=== PATIENT | female | born 1965 | race Caucasian/White ===

== ENCOUNTER 2024-06-28 16:30 | Emergency (ER) | payer BC, SELFPAY ==
[2024-06-28] VITALS (8 sets, daily range): BP systolic 116–144; BP diastolic 71–82; BMI 13.6
[2024-06-28] MEDS: NSS 500 IV (17:04)
[2024-06-28] MEDS: TORADOL 15 MG IV ×2 (17:05→21:07)
[2024-06-28] MEDS: ZOFRAN 4 MG IV (17:07)
[2024-06-28 17:09] LABS: % Basophils 0.7 % (0-2); % Eosinophils 1.2 % (0-6); % Immature Granulocytes 0.3 % (0-0.5); % Lymphocytes 13.9 % (20.5-51.1); % Monocytes 6.7 % (1.7-9.3); % Neutrophils 77.2 % (42.2-75.2); Absolute Basophils 0.1 10^3/uL (0-0.2); Absolute Eosinophils 0.1 10^3/uL (0-0.7); Absolute Lymphocytes 1.3 10^3/uL (1.2-3.4); Absolute Monocytes 0.6 10^3/uL (0.1-0.6); Absolute Neutrophils 7.2 10^3/uL (1.4-6.5); Hematocrit 32.5 % (37.0-47.0); Hemoglobin 10.8 g/dL (12.0-16.0); Mean Corp Hgb Conc. 33.2 g/dL (33.0-37.0); Mean Corpuscular Hgb 30.7 pg (27.0-31.0); Mean Corpuscular Volume 92.3 fL (81.0-99.0); Mean Platelet Volume 9.5 fL (7.4-10.4); Nucleated Red Blood Cells % 0 %; Platelet Count 258 10^3/uL (130-400); Red Blood Cell Count 3.52 10^6/uL (4.20-5.40); Red Cell Dist. Width 13.3 % (11.5-14.5); White Blood Cell Count 9.3 10^3/uL (4.8-10.8)
--- NOTE | 2024-06-28 17:11 | ED.GENMED ---
History of Present Illness
General
Chief Complaint: Flank Pain
Source: patient
Exam Limitations: none
Time Seen by Provider: 06/28/24 16:42
Nursing documentation reviewed up to this point in time: agreed with
History of Present Illness
History of Present Illness:
58-year-old female past medical history of kidney stones and depression presenting to the emergency department today with concerns of left flank pain over the past 3 hours. Associated nausea no vomiting. Feels very similar to previous kidney
stones. Denies any significant change in bowel or bladder function. No chest pain or shortness of breath.
Past History
Past History
ED Past Medical History: Other (Kidney stones, migraines)
Social History
Tobacco: Non-smoker
Alcohol: None
Family History
Family History: Negative Diabetes, Hypertension or CAD
Review of Systems
Review of Systems
Allergies reviewed?: Yes
All Other Systems: ROS reviewed and negative except as documented in HPI and ROS
Phy Exam
Physical Exam
Physical Exam:
GENERAL: Alert , in no apparent distress
EYE: pupils equal and reactive
NECK: Supple, no significant adenopathy.
ENT: o/p clr, mmm.
CARDIAC: Regular rate and rhythm .
LUNGS: Clear breath sounds bilaterally, no acute respiratory distress, no wheezes/rales/rhonchi
ABDOMEN: Soft, without focal tenderness, no r/g, no cvat
NEUROLOGICAL: Alert and oriented, no focal neuro deficits
SKIN: Warm and dry, skin intact.
MUSCULOSKELETAL: No edema, well perfused.
PSYCH: Normal and appropriate interaction.
Course
Orders/Labs/Results
Orders:
Orders
06/28/24 16:58
CMP [Comprehensive Metabolic Panel] Urgent
Complete Blood Count/With Diff Urgent
06/28/24 16:59
CT Abd/pel Without Iv Or Oral Urgent
Comment:
Reason For Exam: left flank pain
0.9% Sodium Chloride 1000 ml [Nss] 1,000 ml IV BOLUS
Ketorolac [Toradol] 15 mg IV NOW STA
Ondansetron Injectable [Zofran] 4 mg IV NOW STA
06/28/24 17:03
0.9% Sodium Chloride 500 ml [Nss] 500 ml IV BOLUS
06/28/24 18:25
HYDROmorphone [Dilaudid] 0.5 mg IV NOW STA
06/28/24 18:26
HYDROmorphone [Dilaudid] 0.5 mg .ROUTE .STK-MED ONE
06/28/24 19:48
HYDROmorphone [Dilaudid] 0.5 mg IV NOW STA
06/28/24 20:43
HYDROmorphone [Dilaudid] 0.5 mg IV NOW STA
Ketorolac [Toradol] 15 mg IV NOW STA
Tamsulosin [Flomax] 0.4 mg PO NOW STA
06/28/24 21:10
Urinalysis Reflex To Culture Urgent
Date Specimen was Collected: 06/28/24
Time Specimen was Collected: 21:06
Urine Microscopic Reflex Cult Urgent
Abnormal Lab Results
06/28/24 06/28/24
16:58 21:10
RBC 3.52 L 10^6/uL
(4.20-5.40)
Hgb 10.8 L g/dL
(12.0-16.0)
Hct 32.5 L %
(37.0-47.0)
Absolute Neuts (auto) 7.2 H 10^3/uL
(1.4-6.5)
Neutrophils % 77.2 H %
(42.2-75.2)
Lymphocytes % 13.9 L %
(20.5-51.1)
Sodium 134 L mmol/L
(135-145)
Potassium 3.3 L mmol/L
(3.5-5.1)
Chloride 108 H mmol/L
(98-107)
Carbon Dioxide 21 L mmol/L
(22-30)
Creatinine 1.1 H mg/dL
(0.6-1.0)
Glucose 172 H mg/dl
(70-99)
Total Protein 5.0 L g/dl
(6.3-8.2)
Albumin 3.3 L g/dl
(3.5-5.0)
Ur Occult Blood Reflex 3+ A
(Negative)
Urine RBC 30-40 A /HPF
(0-2)
Urine Bacteria (Reflex) Few A
(Negative)
06/28/24 16:58
06/28/24 16:58
Vital Signs
Initial and Last Documented VS:
Initial Vital Signs
Pulse Resp BP Pulse Ox
62 20 127/75 100
06/28/24 16:32 06/28/24 16:32 06/28/24 16:32 06/28/24 16:32
Last Documented Vital Signs
Temp Pulse Resp BP Pulse Ox
97.4 F 98 16 116/79 96
06/28/24 17:11 06/28/24 21:00 06/28/24 21:00 06/28/24 21:00 06/28/24 21:00
MDM/Problems Addressed
MDM/Problems Addressed:
58-year-old female presenting to the emergency department today with concerns of left-sided flank pain over the past 3 hours associated nausea. Feels very similar to previous kidney stones. The patient was found to have a 7 mm stone to the left
mid ureter with moderate hydro-. Otherwise her labs without emergent findings creat of 1.1 which patient has had in the past otherwise some slightly low potassium and sodium levels. No signs of infection. Symptoms were significantly improved
after receiving nausea medication and pain medication. Patient elected to trial outpatient treatment. This was discussed with urology who is in agreement. She was given return precautions.
*Critical Care Note
Total Time (30-74mins, 75-104mins- exclusive of procedures): Not Applicable
ED Attending Note
-
Portions of this chart may have been created with voice recognition software.� Occasional wrong word or��sound alike� substitutions may have occurred due to the inherent limitations of voice recognition software.
Discharge Plan
Departure
Patient Disposition: Home (Routine Discharge)
Date of Disposition: 06/28/24
Time of Disposition: 21:32
Patient with high blood pressure during this ER visit?: No
Condition: Good
Covid-19: Not Applicable
Discharge Problem:
Kidney stone
Instructions: Kidney Stones (DC), How to Strain Your Urine
Prescriptions:
New
tamsulosin [Flomax] 0.4 mg capsule
0.4 mg PO HS Qty: 14 0RF
oxycodone-acetaminophen [Percocet] 5-325 mg tablet
1 tab PO Q8H PRN (Reason: Pain) Qty: 7 0RF
ketorolac 10 mg tablet
10 mg PO Q8H PRN (Reason: Pain) 3 Days Qty: 10 0RF
ondansetron 4 mg tablet,disintegrating
4 mg PO Q8H PRN (Reason: nausea and vomiting) Qty: 7 0RF
No Action
oxycodone-acetaminophen 5 MG/325 MG tablet
1 tab PO Q4HPRN PRN (Reason: pain) Qty: 20 0RF
tamsulosin 0.4 MG capsule
0.4 mg PO DAILY Qty: 7 0RF
Referrals:
Pattie Kincaid MD [Family Provider] -
Tereso Douglass MD [Active] - Follow up in 5-7 days
Activity Restrictions/Additional Instructions:
You came to the emergency department today with concerns of flank discomfort. You are found to have a stone in your ureter. Please follow-up closely with urology and take the medications as prescribed. Return to the emergency department for any
worsening, new or concerning symptoms.
Interventions
Interventions:
*Risk Screen - Suicide Last Done: 06/28/24 17:08
*General Assessment Last Done: 06/28/24 17:08
*Neglect/Abuse Screening Last Done: 06/28/24 17:08
ED- Fall Risk Assessment Last Done: 06/28/24 21:38
*ED COVID-19 Vaccine History Last Done: 06/28/24 17:08
*Nursing Disposition Last Done: 06/28/24 21:38
KV-Jauygs-Cipgcbsfgp Assessment Last Done: 06/28/24 17:09
ED-Female Genitourinary Assessment Last Done: 06/28/24 17:09
Discharge Date and Time
Discharge Date/Time: 06/28/24 21:38
Print Language: TRISTANIAN
[2024-06-28 17:24] LABS: ALT (SGPT) < 10 U/L (0-35); AST (SGOT) 20 U/L (14-36); Albumin 3.3 g/dl (3.5-5.0); Alkaline Phosphatase 69 U/L (38-126); Blood Urea Nitrogen 13 mg/dl (7-17); Calcium 9.5 mg/dl (8.4-10.2); Carbon Dioxide 21 mmol/L (22-30); Chloride 108 mmol/L (98-107); Estimated Creatinine Clearance 30 ml/min; Glucose 172 mg/dl (70-99); Potassium 3.3 mmol/L (3.5-5.1); Sodium 134 mmol/L (135-145); Total Bilirubin 0.3 mg/dl (0.2-1.3); eGFR 57.52
[2024-06-28] MEDS: DILAUDID 0.5 MG IV ×3 (18:28→21:07)
[2024-06-28] MEDS: FLOMAX 0.4 MG PO (21:07)
[2024-06-28 21:17] LABS: Urine Albumin Negative (Neg - Trace); Urine Bilirubin Negative (Negative); Urine Character Clear (Clear); Urine Color Yellow; Urine Glucose Negative (Negative); Urine Ketone Negative (Negative); Urine Leukocyte Negative (Negative); Urine Nitrite Negative (Negative); Urine Occult Blood 3+ (Negative); Urine Urobilinogen Negative (Neg - 1+)
[2024-06-28 21:28] LABS: Urine Bacteria Few (Negative); Urine Red Blood Cell 30-40 /HPF (0-2); Urine White Cell 0-2 /HPF (0-5)
== END 2024-06-28 21:38 | disposition home or self-care (01) ==
LOC: EMR 16:30
PROVIDERS: Physician Assistant; EMERGENCY PHYSICIAN Emergency Medicine; FAMILY PHYSICIAN Internal Medicine
DX: N13.2 Hydronephrosis with renal and ureteral calculous obstruction (principal); R11.0 Nausea; G43.909 Migraine, unspecified, not intractable, without status migrainosus; F32.A Depression, unspecified; Z87.442 Personal history of urinary calculi
CPT/HCPCS: 99284; 96374; 96375 ×2; 96361; 96376 ×3; 74176; 80053; 81003; 81015; 85025

== ENCOUNTER 2024-07-04 16:52 | Observation (INO) | payer BC, SELFPAY ==
[2024-07-04] VITALS (7 sets, daily range): BP systolic 121–151; BP diastolic 73–94; BMI 14.5; BMI 13.7
[2024-07-04 05:59] LABS: % Basophils 0.8 % (0-2); % Eosinophils 3.8 % (0-6); % Immature Granulocytes 0.5 % (0-0.5); % Lymphocytes 16.4 % (20.5-51.1); % Monocytes 9.7 % (1.7-9.3); % Neutrophils 68.8 % (42.2-75.2); Absolute Basophils 0.1 10^3/uL (0-0.2); Absolute Eosinophils 0.2 10^3/uL (0-0.7); Absolute Monocytes 0.6 10^3/uL (0.1-0.6); Absolute Neutrophils 4.2 10^3/uL (1.4-6.5); Hematocrit 32.1 % (37.0-47.0); Hemoglobin 10.7 g/dL (12.0-16.0); Mean Corp Hgb Conc. 33.3 g/dL (33.0-37.0); Mean Corpuscular Hgb 30.7 pg (27.0-31.0); Mean Platelet Volume 9.5 fL (7.4-10.4); Nucleated Red Blood Cells % 0 %; Platelet Count 246 10^3/uL (130-400); Red Blood Cell Count 3.49 10^6/uL (4.20-5.40); Red Cell Dist. Width 13.2 % (11.5-14.5); White Blood Cell Count 6.1 10^3/uL (4.8-10.8)
[2024-07-04] MEDS: DILAUDID 1 MG IV (06:03)
[2024-07-04 06:15] LABS: ALT (SGPT) < 10 U/L (0-35); AST (SGOT) 17 U/L (14-36); Albumin 3.2 g/dl (3.5-5.0); Alkaline Phosphatase 79 U/L (38-126); Blood Urea Nitrogen 30 mg/dl (7-17); Carbon Dioxide 20 mmol/L (22-30); Chloride 107 mmol/L (98-107); Estimated Creatinine Clearance 22 ml/min; Glucose 95 mg/dl (70-99); Potassium 3.9 mmol/L (3.5-5.1); Sodium 133 mmol/L (135-145); Total Bilirubin 0.3 mg/dl (0.2-1.3); eGFR 36.69
--- NOTE | 2024-07-04 06:22 | ED.GENMED ---
History of Present Illness
General
Chief Complaint: Flank Pain
Source: patient
Exam Limitations: none
Time Seen by Provider: 07/04/24 06:14
History of Present Illness
History of Present Illness:
See MDM
Past History
Past History
ED Past Medical History: Other (Kidney stones, migraines)
Social History
Tobacco: Non-smoker
Alcohol: None
Family History
Family History: Negative Diabetes, Hypertension or CAD
Phy Exam
Physical Exam
Physical Exam:
See MDM
Course
Orders/Labs/Results
Orders:
Orders
07/04/24 05:51
Comprehensive Metabolic Panel Urgent
07/04/24 05:52
Complete Blood Count/With Diff Urgent
07/04/24 06:01
HYDROmorphone [Dilaudid] 1 mg .ROUTE .STK-MED ONE
07/04/24 06:02
HYDROmorphone [Dilaudid] 1 mg IV NOW STA
07/04/24 06:22
0.9% Sodium Chloride 1000 ml [Nss] 1,000 ml IV BOLUS
07/04/24 06:30
Consult Urology [UROLOGY CONSULT] Urgent
Consulting Provider: Efrem Dominguez
Was physician already notified: Yes
Abnormal Lab Results
07/04/24 07/04/24
05:51 05:52
RBC 3.49 L 10^6/uL
(4.20-5.40)
Hgb 10.7 L g/dL
(12.0-16.0)
Hct 32.1 L %
(37.0-47.0)
Absolute Lymphs (auto) 1.0 L 10^3/uL
(1.2-3.4)
Lymphocytes % 16.4 L %
(20.5-51.1)
Monocytes % 9.7 H %
(1.7-9.3)
Sodium 133 L mmol/L
(135-145)
Carbon Dioxide 20 L mmol/L
(22-30)
BUN 30 H mg/dl
(7-17)
Creatinine 1.6 H mg/dL
(0.6-1.0)
Total Protein 5.0 L g/dl
(6.3-8.2)
Albumin 3.2 L g/dl
(3.5-5.0)
07/04/24 05:52
07/04/24 05:51
Vital Signs
Initial and Last Documented VS:
Initial Vital Signs
Temp Pulse Resp BP Pulse Ox
98.7 F 106 16 133/76 100
07/04/24 05:05 07/04/24 05:05 07/04/24 05:05 07/04/24 05:05 07/04/24 05:05
Last Documented Vital Signs
Temp Pulse Resp BP Pulse Ox
98.7 F 106 16 133/76 100
07/04/24 05:05 07/04/24 05:05 07/04/24 05:05 07/04/24 05:05 07/04/24 05:32
MDM/Problems Addressed
Differential Diagnosis Includes:
HPI and MDM Narrative:
58-year-old female presenting for persistent left flank pain. Patient was here a week ago and found to have a 7 mm left mid ureteral stone. Because she wanted to give outpatient trial, she was placed on Flomax, NSAIDs and narcotics. Due to the
ongoing symptoms, she has returned.
Patient was uncomfortable on exam. She was given a dose of Dilaudid which have significantly improved symptoms.
Given her ongoing symptoms, will discuss case with urology. Blood work was obtained prior to my evaluation and she does have a mild bump in creatinine. Will give IV fluids. Patient is afebrile
Physical exam
General: Uncomfortable
HEENT: protecting airway. Mildly dry mucous membranes
Neck: appears supple
CV: No evidence of cyanosis
Resp: No accessory muscle use
Abd: Non-distended. Left flank pain without rebound
Extremities: No deformities
Neuro: alert
Psych: Normal affect
Skin: Intact
Problems Addressed including Acute and Chronic Conditions affecting care:
1. Left ureteral stone
Acuity: subacute
Prognosis: stable
Details: CT 1 week ago confirms mid ureteral stone. Will discuss case with urology. Patient Dilaudid
2. Acute kidney injury
Acuity: acute
Prognosis: stable
Details: Likely in the setting of decreased p.o. intake. Will give IV fluids
Updates
6:30 AM Case discussed with urology who will evaluate at bedside for stent placement
Differential Diagnosis (but not limited to): Kidney stone, dehydration
Testing considered: Urinalysis
Drug therapy (if applicable): OTC meds, please see d/c instruction regarding Rx drugs
Amount and/or Complexity of Data Reviewed
Clinical info obtained from: Patient
External data reviewed: CT 1 week ago confirms left ureteral stone
Labs I independently reviewed (but not limited to): White blood cell count normal
Radiology: N/A
Pulse Ox: not hypoxic
EKG independently reviewed: N/A
Solar Panel Technician: N/A
Critical Care: N/A
Risk of Complication:
Social Determinants of health: Good social support
Discussed with other providers: Urology
Escalation of Care includes Admit/Obs: Given persistent symptoms with known stone, urology will bring to the OR for stent placement
Occasional wrong word or 'sound a like' substitutions may have occurred due to the inherent limitations of voice recognition software. Read the chart carefully and recognize, using context, where substitutions have occurred.
*Critical Care Note
Total Time (30-74mins, 75-104mins- exclusive of procedures): Not Applicable
ED Attending Note
-
Portions of this chart may have been created with voice recognition software.� Occasional wrong word or��sound alike� substitutions may have occurred due to the inherent limitations of voice recognition software.
Discharge Plan
Departure
Patient Disposition: OR
Date of Disposition: 07/04/24
Time of Disposition: 06:53
Admit to: OR
Presentation/result/management discussed w/ accepting MD/DO: Urology
Discharge Problem:
Calculus of left ureter
Prescriptions:
No Action
oxycodone-acetaminophen 5 MG/325 MG tablet
1 tab PO Q4HPRN PRN (Reason: pain) Qty: 20 0RF
tamsulosin 0.4 MG capsule
0.4 mg PO DAILY Qty: 7 0RF
tamsulosin [Flomax] 0.4 mg capsule
0.4 mg PO HS Qty: 14 0RF
oxycodone-acetaminophen [Percocet] 5-325 mg tablet
1 tab PO Q8H PRN (Reason: Pain) Qty: 7 0RF
ketorolac 10 mg tablet
10 mg PO Q8H PRN (Reason: Pain) 3 Days Qty: 10 0RF
ondansetron 4 mg tablet,disintegrating
4 mg PO Q8H PRN (Reason: nausea and vomiting) Qty: 7 0RF
oxycodone-acetaminophen [Percocet] 5-325 mg tablet
1 tab PO Q8H PRN (Reason: Pain) Qty: 7 0RF
Interventions
Interventions:
*Risk Screen - Suicide Last Done: 07/04/24 05:05
*General Assessment Last Done: 07/04/24 05:05
*Neglect/Abuse Screening Last Done: 07/04/24 05:05
ED- Fall Risk Assessment Last Done: 07/04/24 05:05
*ED COVID-19 Vaccine History Last Done: 07/04/24 05:05
EF-Vdmvip-Dmsvpxoohi Assessment Last Done: 07/04/24 05:31
ED-Female Genitourinary Assessment Last Done: 07/04/24 05:31
Discharge Date and Time
Print Language: KISWAHILI
[2024-07-04] MEDS: NSS 1000 IV (06:31)
--- NOTE | 2024-07-04 08:15 | PHANOTE ---
med rec kee(07/04/24)-patient was unable to give accurate medication list at time of interview. Home med list compiled through [facility] records from 04/04/24 and pharmacy records.
--- NOTE | 2024-07-04 09:36 | CONS.URO ---
Consultation
-
Date/Time Consultation Requested: 07/04/24
Date/Time Consultation Performed: 07/04/24
Requesting Provider: Aleksander
Performing Provider: Alberto
Reason for Consultation: TERRIE, obstructing left ureteral stone
Medical History
History of Present Illness
58F presents to ED for 2nd visit for known obstructing left ureteral stone.
06/28/24: ED visit => acute onset of left flank pain.
CTAP w/o IV contrast => 7 mm calculus in the mid left ureter with moderate proximal hydroureteronephrosis.
Discharged home on tamsulosin + analgesics w/ outpatient Urology F/U.
Had not yet scheduled appointment w/ Urology.
Prior h/o kidney stone passage - has not seen a urologist or required surgical intervention.
07/04/24: ED visit => recurrent severe left renal colic.
WBC WNL.
Cr 1.6 (from 1.1).
UA +RBCs.
Due to recurrent left renal colic and TERRIE noted on updated labs, plan for non-emergent surgical intervention.
Detailed discussion including SDM had w/ patient regarding risks, benefits, alternatives, and potential complications of URS/LL/stone extraction/stent placement.
Risks and potential complications include but not limited to urosepsis, bleeding, ureteral/bladder injury, risk of ureteral stricture formation, need for additional procedures.
A/P:
TERRIE
Recurrent and severe left renal colic
Obstructing mid left ureteral stone w/ hydroureteronephrosis
- Maintain NPO
- To OR for LEFT URS/LL/stone extraction/stent placement vs. stent placement only - as this is non-emergent, patient aware that OR intervention may be late in day vs. tomorrow pending OR availability
- Surgical consent on chart
- IV Ancef 2g stationary engineer apprentice to OR (ordered)
D/w patient and spouse.
D/w Dr. Armijo (ED).
Social History
Tobacco: Non-smoker
Alcohol: None
Personal:
Living: With Family
Family History
Family History: Reviewed & Not Pertinent
Allergies/Home Medications
Allergies
Allergy/AdvReac Type Severity Reaction Status Date / Time
No Known Allergies Allergy Verified 07/04/24 05:04
Home Medications
�Medication �Instructions �Recorded �Confirmed �Type
tamsulosin 0.4 mg capsule (Flomax) 0.4 mg PO HS #14 caps 06/28/24 07/04/24 Rx
bupropion HCl 300 mg 24 hr tablet, 300 mg PO DAILY 07/04/24 07/04/24 History
extended release
mobwafjffm-nzxihxzfmhgep-kdughgar 1 tab PO Q4HPRN PRN headache 07/04/24 07/04/24 History
50 mg-325 mg-40 mg tablet
doxycycline hyclate 50 mg capsule 50 mg PO BID 07/04/24 History
duloxetine 60 mg capsule,delayed 60 mg PO DAILY 07/04/24 07/04/24 History
release
ketorolac 10 mg tablet 10 mg PO Q8HPRN PRN moderate pain 07/04/24 07/04/24 History
ondansetron 4 mg disintegrating 4 mg PO Q8HPRN PRN nausea and 07/04/24 07/04/24 History
tablet vomiting
oxycodone-acetaminophen 5 mg-325 1 tab PO Q8HPRN PRN moderate pain 07/04/24 07/04/24 History
mg tablet (Percocet)
sennosides 8.6 mg tablet (senna) 30 mg PO DAILY 07/04/24 07/04/24 History
sennosides 8.6 mg-docusate sodium 1 tab-cap PO BIDPRN PRN 07/04/24 07/04/24 History
50 mg tablet (Senna with Docusate constipation
Sodium)
spironolactone 100 mg tablet 100 mg PO BID 07/04/24 07/04/24 History
sumatriptan 20 mg/actuation nasal 20 mg intranasal DAILYPRN PRN 07/04/24 07/04/24 History
spray headache
tacrolimus 0.1 % topical ointment 1 applic topical BIDPRN PRN skin 07/04/24 07/04/24 History
issue
topiramate 200 mg tablet 400 mg PO BID 07/04/24 07/04/24 History
trazodone 100 mg tablet 250 mg PO HS 07/04/24 07/04/24 History
Review of Systems
-
History Source: Patient
A 12 point Review of Systems was completed except as noted: Yes
Physical Exam
Vital Signs
Vital Signs
Temp Pulse Resp BP Pulse Ox
98.7 F 106 16 133/84 100
07/04/24 05:05 07/04/24 05:05 07/04/24 05:05 07/04/24 06:00 07/04/24 06:00
Lab / Testing Results
Laboratory Results
07/04/24 05:52
07/04/24 05:51
Physical Exam
General: Well Developed, Well Nourished and No Apparent Distress
HEENT: Normocephalic and Anicteric
Respiratory: Non Labored Respirations
Cardiac: S1/S2
Breast: Deferred by me
GI: Soft, Non Tender and Non Distended
Rectal: Deferred by Provider
Genito-urinary: No Costovertebral Tend
Musculoskeletal: No Clubbing
Skin: Warm and Dry
Neuro: AO x 3, No Motor Deficits, Sedated and Nonfocal/Grossly Intact
Hematologic/Lymphatic: No Lymphadenopathy
Psych: Calm and Intact Judgement
Data Reviewed
-
Total Time Spent with Patient (in minutes): [address] Scan: Image personally visualized and interpreted, Report Reviewed by Me, Discussed with Physician, Discussed with Patient and Discussed with Family
Lab Data: Labs Reviewed, Discussed with Physician, Discussed with Patient and Discussed with Family
Old Records: Reviewed
[2024-07-04] MEDS: DILAUDID 0.5 MG IV ×4 (10:07→20:46)
--- NOTE | 2024-07-04 16:09 | W.SUR.PREOP ---
Pre-Operative Surgical Note
-
I have examined this patient prior to the performance of the scheduled procedure.
The patient's condition is unchanged from the time of the current History and
Physical and the patient is able to undergo the scheduled procedure.
Detailed discussion including SDM had w/ patient regarding risks, benefits, alternatives, and potential complications of URS/LL/stone extraction/stent placement.
Risks and potential complications include but not limited to urosepsis, bleeding, ureteral/bladder injury, risk of ureteral stricture formation, need for additional procedures.
TERRIE
Recurrent and severe left renal colic
Obstructing mid left ureteral stone w/ hydroureteronephrosis
- NPO
- To OR for LEFT URS/LL/stone extraction/stent placement vs. stent placement ONLY - as this is non-emergent, patient aware that OR intervention may be late in day vs. tomorrow pending OR availability
- Surgical consent on chart
- IV Ancef 2g vp production to OR (ordered)
D/w patient and spouse.
[2024-07-04] MEDS: ROXICODONE 5 MG PO (19:11)
[2024-07-04] MEDS: TOPAMAX 400 MG PO (19:11)
[2024-07-04] MEDS: FLUSH (NSS) 2 FLUSH IV (20:46)
[2024-07-04] MEDS: ALDACTONE 100 MG PO (21:01)
[2024-07-04] MEDS: DESYREL 250 MG PO (23:21)
[2024-07-04] MEDS: TYLENOL 650 MG PO (23:21)
[2024-07-04] MEDS: DILAUDID 0.25 MG IV (23:28)
[2024-07-04] MEDS: FLOMAX 0.4 MG PO (23:33)
[2024-07-05] VITALS (11 sets, daily range): BP systolic 80–161; BP diastolic 61–98
--- NOTE | 2024-07-05 01:40 | PTCARENOTE ---
Admission from ER around 1999, c/o 10/10 L flank pain s/p voiding. Several small fragments strained from urine. Pain medication given immediately upon assessment. Pt. A&Ox2, disoriented to time stating her head felt 'fuzzy' after she received pain
medication in ER, in position crying with abdominal guarding, BP and HR elevated, orders for tele received as pt's HR was 170s upon arrival. Admission assessment completed and pain subsided shortly s/p PRN dilaudid. Around 2144 pt. found
wandering the halls, confused to place and time, redirected to room and bed alarm placed. Pt. assisted to bathroom at 2229 and had scant spotting of blood on tissue paper. Asked to evaluate pt's karen area as previous voids were clear yellow, pt.
very hesitant but agreed. Pt. found to have a large rectal prolapse with scant bleeding upon wiping, unwilling to provide further information at that time stating she didn't know she had it. ER nurse note from [id number] stated she mentioned a protrusion
to karen area but didn't specify where and did not allow provider to assess. House GOLF CLUB REPAIRER at bedside to evaluate pt. at which point she stated she never told anyone because it was 'embarrassing' and that she had been dealing with it 'for a while' and has
chronic constipation. bi data architect urologist contacted but stated colorectal did not need to get involved at this point because the prolapse would not interfere with the surgery and pt. can follow up outpatient. Will monitor for further bleeding or
discomfort.
--- NOTE | 2024-07-05 05:13 | W.PN.UPDATE ---
Addendum entered and electronically signed by GUILLERMO Mckeon 07/05/24 07:02:
RN notified PHOTO CARTOGRAPHER, HR staying in 160's, EKG sinus tachycardia, BP 160's/98, afebrile. Will give Metoprolol 2.5 IV x1 now.
Original Note:
Update Note
Progress Note Update
RN notified PHOTO CARTOGRAPHER, she noted few spots of blood on tissue after the usage of toilet. Upon Shelby assessment, RN noted rectum prolapsed. PHOTO CARTOGRAPHER seen and evaluated the patient, Rectal prolapsed noted, with no active bleeding at present. Patient reported, she
has chronic constipation, and her rectal prolapsed a while ago and was embarrassed to tell anyone. Advised patient it needs to be taken care of as outpatient, encouraged high fiber foods and the use of laxatives. Advised RN to make Urology aware.
[2024-07-05] MEDS: TYLENOL 650 MG PO ×2 (05:23→12:21)
[2024-07-05] MEDS: DILAUDID 0.25 MG IV (05:37)
[2024-07-05 06:01] LABS: % Basophils 0.8 % (0-2); % Eosinophils 2.6 % (0-6); % Immature Granulocytes 0.4 % (0-0.5); % Lymphocytes 16.4 % (20.5-51.1); % Monocytes 10.5 % (1.7-9.3); % Neutrophils 69.3 % (42.2-75.2); Absolute Eosinophils 0.1 10^3/uL (0-0.7); Absolute Lymphocytes 0.9 10^3/uL (1.2-3.4); Absolute Monocytes 0.6 10^3/uL (0.1-0.6); Absolute Neutrophils 3.7 10^3/uL (1.4-6.5); Hemoglobin 10.5 g/dL (12.0-16.0); Mean Corp Hgb Conc. 33.9 g/dL (33.0-37.0); Mean Corpuscular Hgb 30.9 pg (27.0-31.0); Mean Corpuscular Volume 91.2 fL (81.0-99.0); Mean Platelet Volume 9.7 fL (7.4-10.4); Nucleated Red Blood Cells % 0 %; Platelet Count 250 10^3/uL (130-400); Red Cell Dist. Width 13.2 % (11.5-14.5); White Blood Cell Count 5.3 10^3/uL (4.8-10.8)
[2024-07-05] MEDS: LOPRESSOR 2.5 MG IV (06:07)
[2024-07-05 06:22] LABS: Blood Urea Nitrogen 23 mg/dl (7-17); Calcium 9.3 mg/dl (8.4-10.2); Carbon Dioxide 17 mmol/L (22-30); Chloride 108 mmol/L (98-107); Estimated Creatinine Clearance 24 ml/min; Glucose 87 mg/dl (70-99); Magnesium 1.8 mg/dl (1.6-2.3); Potassium 3.9 mmol/L (3.5-5.1); Sodium 134 mmol/L (135-145); eGFR 43.07
--- NOTE | 2024-07-05 06:30 | PTCARENOTE ---
Pt. calling for pain medication around 0515 stating 10/10 pain. House HARNESS REPAIRER contacted for reduced dose of dilaudid as pt. was getting confused with 0.5mg IV doses of dilaudid. Pt's HR suddenly spiked to ~170s around 0525, denies chest pain, states left
lower flank pain where ureteral stone has been identified. HARNESS REPAIRER alerted and pain medication given @0537. EKG obtained at 0529 showing sinus tach, HR 172, BP 161/98, temp 98.8, o2 100% on RA. HR still sustaining in 160s several minutes after pt.
reports pain was starting to subside. Requested dose of Lopressor from HARNESS REPAIRER for rate control. Pt. given 2.5mg IV Lopressor at 0607 with immediate results, HR falling back down to 100s-110s within the next 5 minutes.
--- NOTE | 2024-07-05 07:12 | W.PN.UPDATE ---
Update Note
Progress Note Update
pt stable overnight- although rectal prolapse noted- chronic
pt has received pain meds and is having a hard time explaning current sx's
plan to proceed to OR today for ureteroscopy
[2024-07-05] MEDS: CYMBALTA DELAYED RELEASE 60 MG PO (07:47)
[2024-07-05] MEDS: ALDACTONE 100 MG PO ×2 (07:47→16:22)
[2024-07-05] MEDS: TOPAMAX 400 MG PO (07:48)
[2024-07-05] MEDS: WELLBUTRIN XL (24 hour extended release) 150 MG PO (07:48)
[2024-07-05] MEDS: SENOKOT 8.6 MG PO (07:48)
--- NOTE | 2024-07-05 09:09 | W.IMMPOSTOP ---
Surgical Immed Post Op Note
-
Primary Surgeon:
efrain
Assisting Surgeon:
Pre-op Diagnosis:
left ureteral stone
Post-op Diagnosis:
same
Procedure Performed:
cysto, left ureteroscopy, laser litho and stent
Anesthesia Type:
gen
Specimen / Cultures:
none
Estimated Blood Loss:
1cc
Complications:
none
Operative Findings:
left stone fragmented,stent placed
dr vargas evaluated rectum- not obstructed- large rhoids- can f/u as outpt
plan for discharge later today if stable
[2024-07-05] MEDS: TORADOL 15 MG IV (09:46)
[2024-07-05] MEDS: DETROL LA 4 MG PO (09:51)
[2024-07-05] MEDS: Pyridium 200 MG PO (09:51)
[2024-07-05] MEDS: ULTRAM 50 MG PO (13:35)
[2024-07-05 13:55] LABS: Hematocrit 28.3 % (37.0-47.0); Hemoglobin 9.9 g/dL (12.0-16.0); Mean Corpuscular Hgb 31.1 pg (27.0-31.0); Mean Platelet Volume 9.7 fL (7.4-10.4); Platelet Count 246 10^3/uL (130-400); Red Blood Cell Count 3.18 10^6/uL (4.20-5.40); Red Cell Dist. Width 13.2 % (11.5-14.5); White Blood Cell Count 5.3 10^3/uL (4.8-10.8)
[2024-07-05 14:08] LABS: Blood Urea Nitrogen 20 mg/dl (7-17); Calcium 8.8 mg/dl (8.4-10.2); Carbon Dioxide 19 mmol/L (22-30); Chloride 106 mmol/L (98-107); Estimated Creatinine Clearance 30 ml/min; Glucose 145 mg/dl (70-99); Potassium 3.8 mmol/L (3.5-5.1); Sodium 133 mmol/L (135-145); eGFR 57.52
--- NOTE | 2024-07-05 14:15 | CON.CAR ---
Consultation
Consultation Request
Date/Time Consultation Requested: Jul 05 2024 1 PM
Date/Time Consultation Performed: July 05, 2024 2 PM
Requesting Provider: Urology
Performing Provider: Omi Simpson
Reason for Consultation: Tachycardia
Medical History
-
Chief Complaint: flank pain
History of Present Illness:
58-year-old female with history of hyperlipidemia, migraines, and kidney stones who initially presented for flank pain and found to have obstructing kidney stone. She is status post OR for urologic procedure. Overnight, she was in pain and
developed tachycardia. Upon review of the monitor it appears that this was SVT. It did not last too long and she was asymptomatic during this time. This occurred again this afternoon and again was asymptomatic and did not last very long.
Overall, she is not very active but denies any significant cardiovascular symptoms with activity. She denies any significant palpitations. I discussed with her that this is likely provoked from her pain and procedure. Initial labs showed a
negative troponin. I discussed starting a low-dose metoprolol which she is agreeable with.
Past Medical History
Past Medical History: Other (Migraine and kidney stones)
Past Surgical History: Other (Lithotripsy ureteral stent placement)
Social History
Tobacco: Non-Smoker
Alcohol: None
Drug: None
Personal:
Living: With Family
Family History
Family History: Reviewed & Not Pertinent
Allergies / Home Medications
Allergy/AdvReac Type Severity Reaction Status Date / Time
No Known Allergies Allergy Verified 07/04/24 05:04
�Medication �Instructions �Recorded �Confirmed �Type
bupropion HCl 300 mg 24 hr tablet, 300 mg PO DAILY Depression 07/04/24 07/04/24 History
extended release
ocfhsyaqqj-qbnjxdhvympjj-pyecfmhb 1 tab PO Q4HPRN PRN headache 07/04/24 07/04/24 History
50 mg-325 mg-40 mg tablet
duloxetine 60 mg capsule,delayed 60 mg PO DAILY Depression 07/04/24 07/04/24 History
release
sennosides 8.6 mg tablet (senna) 30 mg PO DAILY Constipation 07/04/24 07/04/24 History
sennosides 8.6 mg-docusate sodium 1 tab-cap PO BIDPRN PRN 07/04/24 07/04/24 History
50 mg tablet (Senna with Docusate constipation
Sodium)
spironolactone 100 mg tablet 100 mg PO BID Fluid 07/04/24 07/04/24 History
Retention/Swelling
sumatriptan 20 mg/actuation nasal 20 mg intranasal DAILYPRN PRN 07/04/24 07/04/24 History
spray headache
tacrolimus 0.1 % topical ointment 1 applic topical BIDPRN PRN skin 07/04/24 07/04/24 History
issue
topiramate 200 mg tablet 400 mg PO BID Seizures 07/04/24 07/04/24 History
trazodone 100 mg tablet 250 mg PO HS Sleep 07/04/24 07/04/24 History
nitrofurantoin 100 mg PO BID #10 caps 07/05/24 Rx
monohydrate/macrocrystals 100 mg
capsule (Macrobid)
phenazopyridine 100 mg tablet 100 mg PO BID #30 tabs 07/05/24 Rx
(Pyridium)
tramadol 50 mg tablet 50 mg PO Q8H PRN Pain #30 tabs 07/05/24 Rx
Review of Systems
-
All other systems: Negative unless noted
Physical Exam
Vital Signs
Temp Pulse Resp BP Pulse Ox
98.4 F 102 16 123/95 97
07/05/24 10:24 07/05/24 10:24 07/05/24 10:24 07/05/24 10:24 07/05/24 10:24
Lab Results
07/05/24 13:37
07/05/24 13:37
Physical Exam
General: Well Developed and No Apparent Distress
HEENT: Normocephalic
Respiratory: Clear and Non Labored Respirations
Cardiac: S1/S2 and Regular Rhythm
GI: Soft
Musculoskeletal: No Clubbing and No Edema
Skin: Warm and Dry
Neuro: AO x 3
Impression / Plan
-
58-year-old female with history of hyperlipidemia, migraines, and kidney stones who initially presented for flank pain and found to have obstructing kidney stone. She is status post stent placement and lithotripsy and laser treatment. She
developed SVT that was asymptomatic and short-lived.
SVT and sinus tachycardia
-Will start low-dose metoprolol tartrate 12.5 mg twice daily
-Can uptitrate as needed this is likely needed just in the periprocedure period
-Monitor telemetry
-Troponin negative
Data Reviewed
-
EKG: Tracing Personally Visualized and interpreted (sr)
Labs: Labs Reviewed by me
--- NOTE | 2024-07-05 14:16 | CM ---
Patient was admitted under OBS, OBS letter provided to patient but patient refused to sign, patient lives with spouse in a 2 story home, patient is independent with adl's and ambulation, no dme, patient drives, per patient she will need a new PCP,
some PCP options provided to patient.
Pharmacy: [facility]
PCP: Dr. Kincaid.
Plan; Home with spouse when stable, no needs.
[2024-07-05 14:20] LABS: Troponin I < 0.012 ng/ml
[2024-07-05] MEDS: LOPRESSOR 12.5 MG PO (16:22)
--- NOTE | 2024-07-05 17:30 | PTCARENOTE ---
This AM, at start of this nurses shift, patient was in sinus tachycardia, with HR in 120s at rest. Patient was confused with slow speech. MD was made aware and report was given to [facility] and patient left for L ureteroscopy/laser lithotripsy/stent
placement. After returning from procedure, patient was much more alert and able to answer questions, though still forgetful. At 1106, HR sustained 150s-170s at rest. Pt was not in pain at the time. Remained in sinus tach for [address] Lopez
made aware. Stated to monitor for 1-2hrs. Patient's was then in to see patient. This nurse spoke with him. He stated she has never seen a comic book artist but he thinks her heartrate always feels like it is racing. He also states that she always
seems 'a little out of it' when asked if the confusion and forgetfulness was her baseline. Dr. Lopez made aware and ordered labs, cardio consult, and to hold on discharge. Cardiology saw patient and ordered metoprolol 12.5mg BID and to be seen
outpatient. Dr. Lopez stated patient was okay to discharge home after dinner and after receiving metoprolol.
== END 2024-07-05 18:36 | disposition home or self-care (01) ==
LOC: 2 SOUTH 16:52
PROVIDERS: Specialist; Student in an Organized Health Care Education/Training Program; ADMITTING PHYSICIAN Surgery; EMERGENCY PHYSICIAN Student in an Organized Health Care Education/Training Program; OTHER PHYSICIAN Internal Medicine Cardiovascular Disease
DX: N13.2 Hydronephrosis with renal and ureteral calculous obstruction (principal); R10.9 Unspecified abdominal pain; G43.909 Migraine, unspecified, not intractable, without status migrainosus; I47.10 Supraventricular tachycardia, unspecified; N17.9 Acute kidney failure, unspecified; R31.9 Hematuria, unspecified; E78.5 Hyperlipidemia, unspecified; K62.3 Rectal prolapse; Z87.442 Personal history of urinary calculi
CPT/HCPCS: 52356; 74018; 76000; 80048; 80053; 83735; 84484; 85025; 85027; 93005; 96361; 96374; 96376; 99284; C2617; G0378

== ENCOUNTER 2024-07-16 18:10 | Emergency (ER) | payer BC, SELFPAY ==
[2024-07-16 18:14] VITALS: BP 141/78
--- NOTE | 2024-07-16 18:17 | ED.PDOC.TRB ---
ED Provider Triage
-
Patient seen by provider in Triage?: Seen in Triage
A medical screening examination has been initiated by a qualified medical provider. Based on the assessment performed at this time, it has been determined that an emergent medical condition may exist and the patient has been informed that further
medical evaluation and possible additional diagnostic testing may be needed.
HPI: This is a medical evaluation conducted in person to initiate diagnostic evaluation and provide initial therapeutics. Please see further documentation by the treating clinician.
GENERAL: Alert ,tearful
EYE: No visual abnormalities.
NECK: Trachea midline
ENT: No visible abnormalities.
LUNGS: No acute respiratory distress
NEUROLOGICAL: Alert and oriented
SKIN: no visible lesions.
MUSCULOSKELETAL: Moving extremities normally
PSYCH: Normal and appropriate interaction.
58-year-old female presenting to the emergency department with concerns of left-sided flank pain. Recently had a stone status post extraction and stent as well as lithotripsy. She had the stent removed today and had recurrence of severe pain.
Urology is concerned there could be progression of additional stone. She was told come to the ER. Here she is relatively comfortable given dose of Toradol and Zofran for symptoms initial labs and urinalysis were pending further recommendation from
urology.
[2024-07-16] MEDS: TORADOL 15 MG IV ×2 (18:27→21:33)
[2024-07-16 18:30] LABS: % Basophils 0.9 % (0-2); % Eosinophils 5.5 % (0-6); % Immature Granulocytes 0.6 % (0-0.5); % Lymphocytes 11.3 % (20.5-51.1); % Monocytes 9.7 % (1.7-9.3); Absolute Basophils 0.1 10^3/uL (0-0.2); Absolute Eosinophils 0.7 10^3/uL (0-0.7); Absolute Immature Granulocytes 0.1 10^3/uL (0-0.05); Absolute Lymphocytes 1.4 10^3/uL (1.2-3.4); Absolute Monocytes 1.2 10^3/uL (0.1-0.6); Absolute Neutrophils 8.6 10^3/uL (1.4-6.5); Hematocrit 31.7 % (37.0-47.0); Hemoglobin 10.9 g/dL (12.0-16.0); Mean Corp Hgb Conc. 34.4 g/dL (33.0-37.0); Mean Corpuscular Hgb 30.8 pg (27.0-31.0); Mean Corpuscular Volume 89.5 fL (81.0-99.0); Mean Platelet Volume 9.3 fL (7.4-10.4); Nucleated Red Blood Cells % 0 %; Platelet Count 424 10^3/uL (130-400); Red Blood Cell Count 3.54 10^6/uL (4.20-5.40); Red Cell Dist. Width 13.2 % (11.5-14.5); White Blood Cell Count 11.9 10^3/uL (4.8-10.8)
[2024-07-16 19:25] LABS: Urine Albumin Negative (Neg - Trace); Urine Bilirubin Negative (Negative); Urine Character Clear (Clear); Urine Color Yellow; Urine Glucose Negative (Negative); Urine Ketone Negative (Negative); Urine Leukocyte 1+ (Negative); Urine Nitrite Negative (Negative); Urine Occult Blood 3+ (Negative); Urine Specific Gravity 1.005 (<1.030); Urine Urobilinogen Negative (Neg - 1+)
--- NOTE | 2024-07-16 20:41 | ED.GENMED ---
History of Present Illness
General
Chief Complaint: Flank Pain
Source: patient
Time Seen by Provider: 07/16/24 20:33
History of Present Illness
History of Present Illness:
58yoF with a history of kidney stones presenting for evaluation of flank pain. Patient underwent left ureteral stent placement on 07/04/[address] Lopez. The stone was 7mm and was fragmented during the procedure. Her ureteral stent was removed
around 10am this morning in the office. Shortly afterwards, patient began experiencing L sided abdominal and flank pain. The pain felt similar to when she was first diagnosed with the kidney stone. She called her urologist who prescribed oxycodone.
She took this without any improvement so she was told to go to the ED for evaluation. Patient had nausea earlier but she has none currently. She also reports urinary frequency which has been ongoing. No fevers or chills.
Past History
Past History
ED Past Medical History: Other (Kidney stones, migraines)
Social History
Tobacco: Non-smoker
Alcohol: None
Family History
Family History: Negative Diabetes, Hypertension or CAD
Phy Exam
General Physical Exam
General Presentation: well appearing and no apparent distress
General age: appears stated age
General Skin: warm and dry
General Habitus: normal
Cardiovascular Exam
Cardiovascular Exam: regular rate/rhythm
Pulmonary Exam
Pulmonary Exam: lungs clear, no respiratory distress, no crackles and no wheezing
Gastrointestinal Exam
Gastrointestinal Exam: non tender, soft, non distended and no cva tenderness
Skin Exam
Skin Exam: normal color and warm/dry
Psychiatric Exam
Psychiatric Exam: normal mood/affect
Course
Orders/Labs/Results
Orders:
Orders
07/16/24 18:16
0.9% Sodium Chloride 1000 ml [Nss] 1,000 ml IV BOLUS
Ketorolac [Toradol] 15 mg IV NOW STA
Ondansetron Injectable [Zofran] 4 mg IV NOW STA
07/16/24 18:21
Complete Blood Count/With Diff Urgent
07/16/24 19:18
Urinalysis Reflex To Culture Urgent
Date Specimen was Collected: 07/16/24
Time Specimen was Collected: 18:27
Urine Microscopic Reflex Cult Urgent
Urine Culture Urgent
ERICKA Source: U
Specimen Description:
Date Specimen was Collected: 07/16/24
Time Specimen was Collected: 18:27
07/16/24 20:39
0.9% Sodium Chloride 1000 ml [Nss] 1,000 ml IV BOLUS
07/16/24 20:40
CT Abd/pel Without Iv Or Oral Urgent
Comment:
Reason For Exam: L flank/abd pain s/p ureteral stent removal today
07/16/24 21:04
Ondansetron Injectable [Zofran] 4 mg .ROUTE .STK-MED ONE
07/16/24 21:21
Ketorolac [Toradol] 15 mg IV NOW STA
07/16/24 21:47
Comprehensive Metabolic Panel Urgent
07/16/24 22:30
Ketorolac [Toradol] 10 mg PO NOW STA
Tamsulosin [Flomax] 0.4 mg PO NOW STA
Abnormal Lab Results
07/16/24 07/16/24 07/16/24
18:21 19:18 21:47
WBC 11.9 H 10^3/uL
(4.8-10.8)
RBC 3.54 L 10^6/uL
(4.20-5.40)
Hgb 10.9 L g/dL
(12.0-16.0)
Hct 31.7 L %
(37.0-47.0)
Plt Count 424 H 10^3/uL
(130-400)
Abs Immat Gran (auto) 0.1 H 10^3/uL
(0-0.05)
Absolute Neuts (auto) 8.6 H 10^3/uL
(1.4-6.5)
Absolute Monos (auto) 1.2 H 10^3/uL
(0.1-0.6)
Immature Gran % 0.6 H %
(0-0.5)
Lymphocytes % 11.3 L %
(20.5-51.1)
Monocytes % 9.7 H %
(1.7-9.3)
Carbon Dioxide 19 L mmol/L
(22-30)
BUN 18 H mg/dl
(7-17)
Glucose 102 H mg/dl
(70-99)
Total Protein 5.3 L g/dl
(6.3-8.2)
Ur Occult Blood Reflex 3+ A
(Negative)
Leukocyte Esterase Rfl 1+ A
(Negative)
Urine RBC 11-15 A /HPF
(0-2)
07/16/24 18:21
07/16/24 21:47
Vital Signs
Initial and Last Documented VS:
Initial Vital Signs
Temp Pulse Resp BP Pulse Ox
98.1 F 105 18 141/78 99
07/16/24 18:14 07/16/24 18:14 07/16/24 18:14 07/16/24 18:14 07/16/24 18:14
Last Documented Vital Signs
Temp Pulse Resp BP Pulse Ox
98.1 F 102 18 146/91 100
07/16/24 18:14 07/16/24 22:58 07/16/24 22:58 07/16/24 22:58 07/16/24 21:08
MDM/Problems Addressed
Differential Diagnosis Includes:
58yoF here with recurrent L flank/abd pain after a ureteral stent removal earlier today. +Urinary frequency. Pain now significantly improved after receiving Toradol. She is afebrile and hemodynamically stable. She is well appearing in no distress.
Differential diagnosis includes but is not limited to: ureteral colic/spasms, ureteral stone, infection
Initial ED plan: Check CBC, CMP, UA, and CT abdomen. IV fluid bolus.
*Critical Care Note
Total Time (30-74mins, 75-104mins- exclusive of procedures): Not Applicable
Update Note
Update Note:
Renal function is normal. No overt signs of infection on urinalysis. CT shows two 2mm stones in the distal ureter with mild hydronephrosis. Pain remains controlled with Toradol. No indication for hospitalization. Supportive care discussed including
hydration, urine straining, and Flomax. Patient also requesting a prescription for Toradol which was provided. She has Percocet at home as well. Advised close f/u with urology and Ed return precautions discussed. She was discharged in stable
condition.
ED Attending Note
-
Portions of this chart may have been created with voice recognition software.� Occasional wrong word or��sound alike� substitutions may have occurred due to the inherent limitations of voice recognition software.
Discharge Plan
Departure
Patient Disposition: Home (Routine Discharge)
Date of Disposition: 07/16/24
Time of Disposition: 22:27
Patient with high blood pressure during this ER visit?: No
Discharge Problem:
Calculus of distal left ureter
Instructions: Kidney Stones (DC), How to Strain Your Urine
Prescriptions:
New
ketorolac 10 mg tablet
10 mg PO Q6H PRN (Reason: Pain) 5 Days Qty: 20 0RF
tamsulosin [Flomax] 0.4 mg capsule
0.4 mg PO HS Qty: 7 0RF
No Action
sennosides [senna] 8.6 mg Tablet
30 mg PO DAILY
spironolactone 100 mg Tablet
100 mg PO BID
sennosides-docusate sodium [Senna with Docusate Sodium] 8.6-50 mg Tablet
1 tab-cap PO BIDPRN PRN (Reason: constipation)
svcrlkmrqu-tsfmccjyqfdvd-pvha 50-325-40 mg Tablet
1 tab PO Q4HPRN PRN (Reason: headache)
trazodone 100 mg Tablet
250 mg PO HS
tacrolimus 0.1 % Ointment
1 applic TOPICAL BIDPRN PRN (Reason: skin issue)
topiramate 200 mg Tablet
400 mg PO BID
sumatriptan 20 mg/actuation [place],Non-Aerosol
20 mg INTRANASAL DAILYPRN PRN (Reason: headache)
bupropion HCl 300 mg tablet extended release 24 hr
300 mg PO DAILY
duloxetine 60 mg Capsule,Delayed Release(Dr/Ec)
60 mg PO DAILY
phenazopyridine [Pyridium] 100 mg tablet
100 mg PO BID Qty: 30 0RF
nitrofurantoin monohyd/m-cryst [Macrobid] 100 mg capsule
100 mg PO BID Qty: 10 0RF
tramadol 50 mg tablet
50 mg PO Q8H PRN (Reason: Pain) Qty: 30 0RF
metoprolol tartrate 25 mg tablet
12.5 mg PO BID Qty: 60 1RF
Referrals:
NONE,* [Family Provider] -
Herbert Lopez Jr., MD [Active] -
Activity Restrictions/Additional Instructions:
Drink plenty of fluids. Take Flomax and strain your urine until stone has passed.
Take Toradol as needed for pain. Take oxycodone only as needed for severe breakthrough pain.
Please call your urologist tomorrow for follow-up. Return to the ER with any worsening symptoms, uncontrolled pain, fevers.
Interventions
Interventions:
*Risk Screen - Suicide Last Done: 07/16/24 18:14
*General Assessment Last Done: 07/16/24 18:14
*Neglect/Abuse Screening Last Done: 07/16/24 18:14
*Nursing Disposition Last Done: 07/16/24 22:58
VT-Mcungz-Mbjyttsjou Assessment Last Done: 07/16/24 21:08
ED-Female Genitourinary Assessment Last Done: 07/16/24 21:08
Discharge Date and Time
Discharge Date/Time: 07/16/24 22:59
Print Language: PAKISTANI
[2024-07-16 21:08] VITALS: BP 138/80; BMI 12.9
[2024-07-16] MEDS: NSS 1000 IV (21:12)
[2024-07-16 22:21] LABS: ALT (SGPT) < 10 U/L (0-35); AST (SGOT) 21 U/L (14-36); Albumin 3.5 g/dl (3.5-5.0); Alkaline Phosphatase 76 U/L (38-126); Blood Urea Nitrogen 18 mg/dl (7-17); Calcium 9.7 mg/dl (8.4-10.2); Carbon Dioxide 19 mmol/L (22-30); Chloride 106 mmol/L (98-107); Estimated Creatinine Clearance 35 ml/min; Glucose 102 mg/dl (70-99); Potassium 3.9 mmol/L (3.5-5.1); Sodium 136 mmol/L (135-145); Total Bilirubin 0.4 mg/dl (0.2-1.3); Total Protein 5.3 g/dl (6.3-8.2); eGFR > 60.00
[2024-07-16] MEDS: FLOMAX 0.4 MG PO (22:54)
[2024-07-16 22:58] VITALS: BP 146/91
== END 2024-07-16 22:59 | disposition home or self-care (01) ==
LOC: EMR 18:10
PROVIDERS: Physician Assistant; EMERGENCY PHYSICIAN Emergency Medicine
DX: N20.1 Calculus of ureter (principal); Z46.6 Encounter for fitting and adjustment of urinary device; Z87.442 Personal history of urinary calculi
CPT/HCPCS: 99284; 96374; 96375; 96361; 74176; 80053; 81003; 81015; 85025; 87086